=== PATIENT | female | born 1975 | race Caucasian/White ===

== ENCOUNTER 2023-04-09 17:33 | Observation (INO) | payer BC ==
[2023-04-09] MEDS ORDERED: NA CHLORIDE 0.9% 1,000 ML ONE (18:25)
--- NOTE | 2023-04-09 18:25 | RAD REPORT ---
EXAM DESCRIPTION: RAD - Chest Single View - 04/09/2023 6:13 pm CLINICAL HISTORY: CHEST PAIN COMPARISON: <Comparisons> FINDINGS: Lines: None. Lungs: No evidence of edema or pneumonia. Pleural: No significant pleural effusions or pneumothorax. Cardiac: The heart size is within normal limits. Mediastinum: Within normal limits. Bones: No acute fractures. Other: None IMPRESSION: No acute cardiopulmonary disease.
[2023-04-09] MEDS ORDERED: hydrOXYzine HCL 25 MG TAB ONE ×2 (18:30→19:47)
[2023-04-09 18:34] LABS: Absolute Lymphocytes (CBC) 1.5 K/uL (0.7-4.9); Lymphocytes % 19.9 % (15.3-44.8); MCV 92.9 fL (80-100); MPV 7.1 fL (7.6-11.3); Platelets 134 thou/uL (152-406); RBC Red Blood Cell Count 4.41 M/uL (3.86-4.86)
[2023-04-09 18:58] LABS: Troponin High Sensitivity 60.4 pg/mL (<58.9)
--- NOTE | 2023-04-09 19:31 | ER ---
Nurse's Notes [facility] Name: Ruby Henderson Age: 47 yrs Sex: Female : 1975 Arrival Date: 04/09/2023 Time: 17:33 Bed 20 Private MD: Diagnosis: Chest pain, unspecified;Anxiety disorder, unspecified;Alcohol abuse Presentation: 04/09 17:42 Chief complaint: Patient states: Chest pressure, abdominal pains, "alcohol poisoning" ll1 for a few days. Took herself off alprazolam 4 days ago. N/V every morning. Drinks 4 pack od small cecily daily. Coronavirus screen: Client denies travel out of the [place] in the last 14 days. At this time, the client does not indicate any symptoms associated with coronavirus-19. Ebola Screen: Patient denies travel to an Ebola-affected area in the 21 days before illness onset. 17:42 Method Of Arrival: Ambulatory ll1 17:44 Initial Sepsis Screen: Does the patient meet any 2 criteria? No. Patient's initial ll1 sepsis screen is negative. Does the patient have a suspected source of infection? No. Patient's initial sepsis screen is negative. Risk Assessment: Do you want to hurt yourself or someone else? Patient reports no desire to harm self or others. Onset of symptoms was April 07, 2023. 17:44 Acuity: CHANDU 3 ll1 Triage Assessment: 17:46 General: Appears uncomfortable, Behavior is cooperative, appropriate for age, anxious. ll1 Pain: Complains of pain in chest Pain currently is 3 out of 10 on a pain scale. Neuro: Reports. Cardiovascular: Reports chest pain. GI: Reports nausea, vomiting. Historical: - PMHx: 17:44 Hypertensive disorder; Anxiety; ll1 - Immunization history:: Adult Immunizations up to date. - Social history:: Smoking status: unknown Patient uses alcohol, on a daily basis. Screenin:01 [facility] ED Fall Risk Assessment (Adult) History of falling in the last 3 months, me1 including since admission Yes- single mechanical fall (1 pt) Confusion or Disorientation No (0 pts) Intoxicated or Sedated Yes (3 pts) Impaired Gait No (0 pts) Mobility Assist Device Used No (0 pt) Altered Elimination No (0 pt) Score/Fall Risk Level 0 - 2 = Low Risk Maintained a safe environment, Provided non-skid footwear, Hourly rounding (assess needs \\T\\ fall precautionary measures) done. Abuse screen: Denies threats or abuse. Nutritional screening: No deficits noted. Tuberculosis screening: No symptoms or risk factors identified. Assessment: 19:01 General: Appears uncomfortable, well groomed, well developed, well nourished, Behavior me1 is cooperative, appropriate for age, anxious, Reports Chest pressure, abdominal pains, "alcohol poisoning" for a few days. Took herself off alprazolam 4 days ago. N/V every morning. Drinks 4 pack of small cecily daily. Pain: Complains of pain in chest Pain does not radiate. Pain currently is 3 out of 10 on a pain scale. Quality of pain is described as pressure Pain began 2-3 days ago. Is continuous. Neuro: Level of Consciousness is awake, alert, obeys commands, Oriented to person, place, time, situation, Appropriate for age. Cardiovascular: Capillary refill < 3 seconds Patient's skin is warm and dry. Respiratory: Airway is patent Respiratory effort is even, unlabored, Respiratory pattern is regular, symmetrical. GI: Abdomen is non-distended, Reports lower abdominal pain, upper abdominal pain, cramping, nausea, vomiting, since a few days ago. n/v since earlier today. Vital Signs: 17:42 BP 141 / 104; Pulse 105; Resp 20; Temp 99; Pulse Ox 97% ; Pain 3/10; ll1 18:22 BP 124 / 82; Pulse 89; Resp 16; Pulse Ox 97% on R/A; me1 19:43 BP 148 / 103; Pulse 91; Resp 18; Pulse Ox 99% on R/A; me1 21:10 BP 116 / 75; Pulse 96; Resp 18; Pulse Ox 98% on R/A; me1 17:42 Pain Scale: Adult ll1 ED Course: 17:36 Patient arrived in ED. mr 17:36 Vivek Jean MD is Attending Physician. ec2 17:44 Arm band placed on. ll1 17:46 Triage completed. ll1 18:07 Sue Reynaga, JANE is Primary Nurse. me1 18:08 Patient placed in an exam room, on a stretcher. ll1 18:15 XRAY Chest (1 view) In Process Unspecified. EDMS 18:23 Alcohol Level Sent. me1 18:59 Notified ED physician of a critical lab result(s). troponin 60.4, notified Dr Jean. me1 19:01 Patient has correct armband on for positive identification. Placed in gown. Bed in low me1 position. Call light in reach. Side rails up X2. Provided Education on: POC. Verbalized understanding. . 19:01 No provider procedures requiring assistance completed. me1 19:30 Ezequiel Dominguez is Hospitalizing Provider. ec2 20:28 Shine Taveras MD is Hospitalizing Provider. kb 21:47 Lipid Profile Sent. me1 21:47 Lipid Profile Sent. me1 21:47 Troponin High Sensitivity Sent. me1 21:48 Lipase Sent. me1 04/10 00:03 Patient admitted, IV remains in place. vc1 Administered Medications: 04/09 18:28 Drug: NS 0.9% IV 1000 ml IV at 1 bolus Per protocol; 1000 mL bolus Route: IV; Rate: 1 me1 bolus; Site: right antecubital; 18:31 Drug: hydrOXYzine PO 50 mg PO once Route: PO; me1 19:05 Follow up: Response: No adverse reaction me1 19:50 Drug: Aspirin PO Chewable Tablet 324 mg PO once; 81 mg tablets x 4 Route: PO; me1 20:37 Follow up: Response: No adverse reaction me1 19:50 Drug: hydrOXYzine PO 50 mg PO once Route: PO; me1 20:37 Follow up: Response: No adverse reaction me1 Medication: 19:01 VIS not applicable for this client. me1 Outcome: 19:31 Decision to Hospitalize by Provider. ec2 04/10 00:03 Admitted to ER Hold. Please see [facility] for further documentation. vc1 Condition: good Instructed on the need for admit, 11:54 Patient left the ED. hb Signatures: Dispatcher [employer] EDMS Radha Coulter, GARRICK DATA INTEGRITY CONSULTANT-Laxmi Menezes, Reg Reg mr JadenKarla, RN RN Amara Venegas RN RN ll1 Jojo Wang RN RN 1 Sue Reynaga RN RN ca1 Vivek Jean MD MD ec2 Corrections: (The following items were deleted from the chart) 04/09 17:46 17:42 Chief complaint: Patient states: Chest pressure, abdominal pains, "alcohol ll1 poisoning" for a few days. Took herself off alprazolam 4 days ago. ll1 17:46 17:42 Pulse 105bpm; Resp 20bpm; Pulse Ox 97%; Temp 99F; ll1 ll1 19:01 17:42 Chief complaint: Patient states: Chest pressure, abdominal pains, "alcohol me1 poisoning" for a few days. Took herself off alprazolam 4 days ago. N/V every morning. Drinks 4 pack od small cecily daily. ll1
--- NOTE | 2023-04-09 19:31 | EDPHYS ---
Physician Documentation [facility] Name: Ruby Henderson Age: 47 yrs Sex: Female : 1975 Arrival Date: 04/09/2023 Time: 17:33 Bed 20 Private MD: ED Physician Vivek Jean HPI: 04/09 17:49 This 47 yrs old Female presents to ER via Ambulatory with complaints of ec2 Anxiety. 17:49 Patient arrives today for evaluation of alcohol intoxication as well as anxiety. ec2 Patient reports that she has a history of anxiety, has been on alprazolam for the past month, states that she had subsequently tried weaning off of this and feels that her anxiety is getting worse. Patient also reports history of significant alcohol abuse, states that she drinks approximately 1 bottle of wine per day. Patient reports that she is having chest discomfort as well as palpitations. Patient reports no vomiting or diarrhea. Of note patient is accompanied by family members. . Historical: - PMHx: 17:44 Hypertensive disorder; Anxiety; ll1 - Immunization history:: Adult Immunizations up to date. - Social history:: Smoking status: unknown Patient uses alcohol, on a daily basis. ROS: 17:49 Constitutional: as per hpi ec2 Exam: 17:49 Constitutional: GEN: NAD Head: atraumatic Eyes: EOMI Ears: External ears are ec2 normal. CV: tachycardia LUNGS: no respiratory distress, no wheezes, no rales, rhonchi ABD: non-distended SKIN: no evidence of rashes MSK: no evidence of trauma NEURO: moves all extremities equally Vital Signs: 17:42 BP 141 / 104; Pulse 105; Resp 20; Temp 99; Pulse Ox 97% ; Pain 3/10; ll1 18:22 BP 124 / 82; Pulse 89; Resp 16; Pulse Ox 97% on R/A; me1 19:43 BP 148 / 103; Pulse 91; Resp 18; Pulse Ox 99% on R/A; me1 21:10 BP 116 / 75; Pulse 96; Resp 18; Pulse Ox 98% on R/A; me1 17:42 Pain Scale: Adult ll1 MDM: 17:40 Patient medically screened. ec2 17:49 Data reviewed: vital signs. ED course: Patient arrives today due to concern for ec2 anxiety. Examination remarkable for well-appearing nontoxic dividual is otherwise in no acute distress with a reassuring cardiopulmonary examination. Will obtain lab work, EKG, chest x-ray for further assessment the patient complaint. Currently considered processes such as anxiety, electrolyte disturbances, ACS. Low suspicion for PE, low suspicion for dissection.. 18:34 ED course: Chest x-ray independently reviewed and interpreted by me, shows no acute ec2 intrathoracic process. . 19:01 ED course: CBC is reassuring. Troponin elevated at 60.4. Metabolic profile with ec2 appropriate electrolytes and renal function, BNP within normal ranges, chest x-ray with no acute intrathoracic process. Ultimately I have no baseline for the patient, will admit for further cardiac evaluation.. 19:21 ED course: EKG independently reviewed and interpreted by me, shows normal sinus rhythm, ec2 rate of 80, no acute ST segment elevations, intervals are otherwise nonconcerning.. 19:30 ED course: I discussed case with hospitalist, pending admission. . ec2 20:28 Consideration of Admission/Observation Patient was admitted/placed on observation. kb Escalation of care including admission/observation considered. Management of patient was discussed with the following: Hospitalist: Dr Taveras accepts pt for admission. Counseling: I had a detailed discussion with the patient and/or guardian regarding the historical points, exam findings, and any diagnostic results supporting the discharge/admit diagnosis, lab results, radiology results, the need for further work-up and treatment in the hospital. 04/09 17:49 Order name: Basic Metabolic Panel; Complete Time: 19:01 ec2 04/09 17:49 Order name: CBC with Diff; Complete Time: 19:01 ec2 04/09 17:49 Order name: NT PRO-BNP; Complete Time: 19:01 ec2 04/09 17:49 Order name: Troponin HS; Complete Time: 19:01 ec2 04/09 17:49 Order name: Alcohol Level; Complete Time: 19:03 ec2 04/09 21:17 Order name: Lipid Profile [facility] 04/09 21:17 Order name: Lipid Profile; Complete Time: 14:17 EDFL 04/09 21:17 Order name: Troponin High Sensitivity [facility] 04/09 21:17 Order name: Troponin High Sensitivity [facility] 04/09 21:17 Order name: Troponin High Sensitivity; Complete Time: 14:17 [facility] 04/09 21:17 Order name: Troponin High Sensitivity EDMS 04/09 21:17 Order name: Troponin High Sensitivity; Complete Time: 14:17 EDMS 04/09 21:18 Order name: Lipase EDMS 04/09 22:37 Order name: Lipase; Complete Time: 14:17 EDMS 04/09 17:49 Order name: XRAY Chest (1 view); Complete Time: 18:34 ec2 04/09 17:49 Order name: EKG; Complete Time: 17:49 ec2 04/09 21:17 Order name: CONS Physician Consult EDMS 04/09 17:49 Order name: Cardiac monitoring; Complete Time: 19:18 ec2 04/09 17:49 Order name: EKG - Nurse/Tech; Complete Time: 19:18 ec2 04/09 17:49 Order name: IV Saline Lock; Complete Time: 18:21 ec2 04/09 17:49 Order name: Labs collected and sent; Complete Time: 18:21 ec2 04/09 17:49 Order name: O2 Per Protocol; Complete Time: 18:21 ec2 04/09 17:49 Order name: O2 Sat Monitoring; Complete Time: 18:22 ec2 Administered Medications: 18:28 Drug: NS 0.9% IV 1000 ml IV at 1 bolus Per protocol; 1000 mL bolus Route: IV; Rate: 1 me1 bolus; Site: right antecubital; 18:31 Drug: hydrOXYzine PO 50 mg PO once Route: PO; me1 19:05 Follow up: Response: No adverse reaction me1 19:50 Drug: Aspirin PO Chewable Tablet 324 mg PO once; 81 mg tablets x 4 Route: PO; me1 20:37 Follow up: Response: No adverse reaction me1 19:50 Drug: hydrOXYzine PO 50 mg PO once Route: PO; me1 20:37 Follow up: Response: No adverse reaction me1 Disposition: 04/10 14:17 Co-signature as Attending Physician, Vivek Jean MD. ec2 Disposition Summary: 04/09/23 19:31 Hospitalization Ordered Notes: Hospitalization Status: Inpatient Admission ec2 Condition: Stable ec2 Problem: new ec2 Symptoms: have improved ec2 Bed/Room Type: Standard ec2 Provider: Shine Taveras(04/09/23 20:28) jael Location: [facility] ER HOLD(04/09/23 20:59) rv1 Room Assignment: ERHOLD-(04/09/23 20:59) rv1 Diagnosis - Chest pain, unspecified ec2 - Anxiety disorder, unspecified ec2 - Alcohol abuse ec2 Forms: - Medication Reconciliation Form ec2 - SBAR form ec2 - Leadership Thank You Letter ec2 Signatures: Dispatcher [employer] EDRadha Jackson, GARRICK ABDALLA-Amara Farah RN RN 1 Emmy Peck rv1 Sue Reynaga RN RN ca1 Vivek Jean MD MD ec2 Corrections: (The following items were deleted from the chart) 04/09 18:02 17:49 Patient arrives today for evaluation of alcohol intoxication as well as anxiety. ec2 Patient reports that she has a history of anxiety, has been on alprazolam for the past month, states that she had subsequently tried weaning off of this and feels that her anxiety is getting worse. Patient also reports history of significant alcohol abuse, states that she drinks approximately 1 bottle of wine per day. Patient reports that she is having chest discomfort as well as palpitations. Patient reports no vomiting or diarrhea.. ec2 20:28 19:31 Ezequiel Dominguez ec2 kb 20:59 19:31 Telemetry/MedSurg (Inpatient) ec2 rv1 20:59 19:31 ec2 rv1
[2023-04-09] MEDS ORDERED: ASPIRIN 81 MG CHEWABLE TABLET ONE (19:47)
[2023-04-09] MEDS ORDERED: NITROGLYCERIN 0.4 MG/TAB SL PRN (21:09)
[2023-04-09] MEDS ORDERED: MORPHINE 4 MG/ML SYR IV PRN (21:09)
--- NOTE | 2023-04-09 21:22 | P.HP ---
Certification for Inpatient Patient admitted to: Observation Practitioner: I am a practitioner with admitting privileges, knowledge of patient current condition, hospital course, and medical plan of care. Services: Services provided to patient in accordance with Admission requirements found in Title 42 Section 412.3 of the Code of Federal Regulations Patient History Date of Service: 04/09/23 Reason for admission: Chest pain History of Present Illness: 47-year-old female with no known medical problems presented to the emergency department with complaints of chest pain Patient stated that his symptoms started approximately 1 week back. Intermittent. Pain is mainly localized in the retrosternal area. Describes it as a burning sensation worse with swallowing. Denies palpitations, dizziness. No radiation. Denies cough, shortness of breath. Cannot admitted to drinking alcohol daily-1 bottle of wine per day She was initially evaluated in the ED. Hemodynamically stable at presentation EKG showed no ST or T wave changes Troponin is slightly elevated Patient is chest pain-free at this point in time Review of Systems General: Unremarkable Eyes: Unremarkable ENT: Unremarkable Respiratory: Unremarkable Cardiovascular: Chest Pain Gastrointestinal: Unremarkable Genitourinary: Unremarkable Musculoskeletal: Unremarkable Integumentary: Unremarkable Neurological: Unremarkable Physical Examination - Physical Exam General: Alert, Oriented x3 HEENT: Atraumatic, Normocephalic Neck: Supple, JVD not distended Respiratory: Clear to auscultation bilaterally, Normal air movement Cardiovascular: No edema, Regular rate/rhythm, Normal S1 S2 Gastrointestinal: Normal bowel sounds, Soft and benign, Non-distended Musculoskeletal: No swelling, No erythema Integumentary: No rashes, No erythema Neurological: Normal gait, Normal speech - Studies Laboratory Data (last 24 hrs) 04/09/23 04/09/23 18:20 18:20 WBC 7.50 Hgb 13.7 Hct 41.0 Plt Count 134 L Sodium 137 Potassium 4.0 BUN 13 Creatinine 0.78 Glucose 94 Assessment and Plan - Advance Directives Does patient have a Living Will: No Does patient have a Durable POA for Healthcare: No Assessment & Plan - Plan ASSESSMENT Chest pain-atypical, likely esophagitis Slightly elevated troponin Chronic alcohol abuse PLAN Patient presented with chest pain mainly localized in the retrosternal area-1 week in duration, worse with swallowing. Admitted to drinking alcohol-1 bottle of wine per day Chest pain is atypical, most likely esophagitis/gastritis Patient will be placed in observation Monitor on telemetry Will start the patient on Protonix 40 mg p.o. twice daily, sucralfate 1 g p.o. 4 times daily Consult the patient about abstaining from drinking alcohol EKG did not show any ST or T wave changes Troponin is slightly elevated Will start Lovenox 1 mg/kg subcutaneous every 12 hours for now. Repeat troponin q 8 hours x 2 Sublingual nitroglycerin, IV morphine as needed for chest pain Obtain cardiology consult Check lipase level Further management will be based on patient hospital course. Likely discharge on 04/10/2023 clinically stable. Discussed treatment plan with the patient and answered all her questions. - Advance Directives Does patient have a Living Will: No Does patient have a Durable POA for Healthcare: No
[2023-04-09 22:31] LABS: Troponin High Sensitivity 59.8 pg/mL (<58.9)
[2023-04-09 22:41] VITALS: BMI 22.4
[2023-04-10] MEDS ORDERED: ONDANSETRON 4 MG/2 ML VIAL ONE (06:01)
[2023-04-10] MEDS ORDERED: ONDANSETRON 4 MG/2 ML VIAL IV PRN (06:05)
[2023-04-10] MEDS: PANTOPRAZOLE 40MG TABLET PO SCH ×2 (07:30→16:30)
[2023-04-10] MEDS ORDERED: PANTOPRAZOLE 40MG TABLET PO ONE (07:59)
[2023-04-10] MEDS ORDERED: ASPIRIN EC 81 MG TAB PO ONE (07:59)
[2023-04-10] MEDS ORDERED: ENOXAPARIN 60 MG/0.6 ML SQ ONE (08:00)
[2023-04-10] MEDS: SUCRALFATE 1GM/10ML UCUP FT SCH ×3 (08:20→16:31)
[2023-04-10] MEDS ORDERED: LORAZEPAM 1 MG TABLET PO ONE (08:43)
[2023-04-10] MEDS ORDERED: LORAZEPAM 1 MG TABLET ONE (08:48)
[2023-04-10] MEDS ORDERED: ENOXAPARIN 60 MG/0.6 ML SQ SCH (09:00)
[2023-04-10] MEDS ORDERED: ASPIRIN EC 81 MG TAB PO SCH (09:00)
[2023-04-10] MEDS ORDERED: FLUMAZENIL 0.1 MG/ML (5 mL VIAL) IV PRN (09:18)
[2023-04-10] MEDS ORDERED: LORazepam 2 MG/ML VIAL IV PRN (09:18)
[2023-04-10] MEDS: LORazepam 2 MG/ML VIAL IV SCH ×3 (10:00→16:35)
[2023-04-10] MEDS ORDERED: LIDOCAINE 1% 20 ML MDV ONE (11:42)
[2023-04-10] MEDS ORDERED: HEPA 1000U/500MLS 2,000 UNIT/1,000 ML BAG IV ONE (11:42)
[2023-04-10] MEDS ORDERED: VERAPAMIL HCL 10 MG/4 ML VIAL IV ONE (11:42)
[2023-04-10] MEDS ORDERED: HEPARIN 5000 UNIT/ML 1 ML VIAL ONE (11:43)
[2023-04-10] MEDS ORDERED: HEPARIN 10,000 UNIT/10 ML VIAL IV ONE (11:43)
[2023-04-10] MEDS ORDERED: NA CHLORIDE 0.9% 0 ML ONE (11:43)
[2023-04-10] MEDS ORDERED: NA CHLORIDE 0.9% 500 ML ONE (12:27)
[2023-04-10] MEDS ORDERED: MIDAZOLAM HCL 2 MG/2 ML INJ ONE (13:00)
[2023-04-10] MEDS ORDERED: FENTANYL CITR 100 MCG/2 ML ONE (13:00)
[2023-04-10] MEDS ORDERED: CLOPIDOGREL 75 MG TABLET ONE (13:01)
[2023-04-10] MEDS ORDERED: ATROPINE SULF 1 MG/10 ML SYR IV ONE (13:01)
[2023-04-10] MEDS ORDERED: TICAGRELOR 90 MG TABLET PO ONE (13:01)
[2023-04-10] MEDS ORDERED: ASPIRIN 325 MG TAB ONE (13:02)
[2023-04-10 15:42] VITALS: O2SAT 97
[2023-04-10 17:28] VITALS: BP 130/85; TEMP 98.4
--- NOTE | 2023-04-10 17:32 | OP ---
Date of Procedure: 04/10/2023 Surgeon: PAWEL VALLE Procedures Performed: 1.Selective coronary angiogram. 2.Left heart catheterization. Indication: Nip-LE-cingmxrqh myocardial infarction. Access: Right radial artery 6-Slovenian closed with TR band. Complications: None. Bleeding: Less than 20 mL. Description Of Procedure: After risks, benefits, alternatives were explained, the patient agreed to procedure and signed informed consent. Patient was brought into the cardiac catheterization laborato ry, prepped and draped in the usual sterile fashion. Then I accessed right radial artery using pedia tric micropuncture kit, placed a 6-Slovenian Slender sheath and took 5-Slovenian [place] 4.0 catheter over a J-wire, engaged the left main and then the right coronary artery, took standard views and a catheter was placed over the wire into the LV, measured the LVEDP. Pullback did not record any gradient. The n I removed the catheter and the sheath and placed TR band with good hemostasis. Findings: 1.Left main is normal. 2.LAD; large and normal. Normal diagonal branches. 3.Left circumflex; moderate size and normal. 4.RCA; moderate size and dominant, normal. 5.Normal LVEDP. Conclusion: 1.Normal coronary arteries. 2.Normal LVEDP. Recommendation: Medical management. SR/MODL Voice ID: [id number] Report ID: [id number]
--- NOTE | 2023-04-10 18:49 | P.DS ---
Admission Date: 04/09/23 Discharge Date: 04/10/23 Disposition: ROUTINE DISCHARGE Discharge Condition: FAIR Reason for Admission: Chest pain - Problems (1) Chest pain Current Visit: Yes Status: Acute (2) Alcohol intoxication Current Visit: Yes Status: Acute (3) Hyperlipidemia Current Visit: Yes Status: Acute Brief History of Present Illness: 47-year-old female with history of alcoholism presented to the emergency department with complaints of chest pain Patient stated that his symptoms started approximately 1 week back. Intermittent. Pain is mainly localized in the retrosternal area. She described s a burning sensation worse with swallowing. Denies palpitations, dizziness. No radiation. Denies cough, shortness of breath. Cannot admitted to drinking alcohol daily-1 bottle of wine per day She was initially evaluated in the ED. EKG showed no ischemic changes. Troponin is slightly elevated Patient hospitalized for ACS rule out. Hospital Course: Patient placed on observation on the medical floor. Symptoms suspected to be related to alcohol induced gastritis. Patient alcohol level on presentation was in the 400s. Her troponin was mildly elevated but trended flat. She was seen and evaluated by cardiology who performed cardiac catheterization. Cardiac cath reported no significant coronary artery disease given elevated troponin. Patient was placed on Protonix twice a day and sucralfate. She tolerated diet. She received a single dose of Ativan but was overall stable during the hospital stay. Patient is discharged with Protonix and Maalox for gastritis. Vital Signs/Physical Exam: Temp Pulse Resp BP Pulse Ox 98.4 F 74 14 130/85 98 04/10/23 16:00 04/10/23 16:00 04/10/23 16:00 04/10/23 16:00 04/10/23 16:00 General: In no apparent distress HEENT: Mucous membr. moist/pink Neck: JVD not distended Respiratory: Clear to auscultation bilaterally, Normal air movement Cardiovascular: No edema, Regular rate/rhythm, Normal S1 S2 Gastrointestinal: Normal bowel sounds, Soft and benign, Non-distended Musculoskeletal: No swelling Laboratory Data at Discharge: WBC 7.50 thou/uL (4.3-10.9) 04/09/23 18:20 Hgb 13.7 g/dL (12.0-15.0) 04/09/23 18:20 Hct 41.0 % (36.0-45.0) 04/09/23 18:20 Plt Count 134 thou/uL (152-406) L 04/09/23 18:20 Sodium 137 mEq/L (136-145) 04/09/23 18:20 Potassium 4.0 mEq/L (3.5-5.1) 04/09/23 18:20 BUN 13 mg/dL (7-18) 04/09/23 18:20 Creatinine 0.78 mg/dL (0.55-1.02) 04/09/23 18:20 Glucose 94 mg/dL (74-106) 04/09/23 18:20 Triglycerides 62 mg/dL (<150) 04/09/23 21:46 Cholesterol 236 mg/dL (<200) H 04/09/23 21:46 HDL Cholesterol 139 mg/dL (40-60) H 04/09/23 21:46 Cholesterol/HDL Ratio 1.70 04/09/23 21:46 Lipase 114 U/L (13-75) H 04/09/23 21:46 Home Medications: Folic Acid 1 mg PO DAILY #30 tab 04/10/23 Lisinopril [Zestril] 1 tab PO DAILY 04/10/23 Mag Hydrox/Al Hydrox/Simeth [Maalox Suspension] 15 ml PO TID #355 ml 04/10/23 Multivit,Ther Iron,Ca,FA & Min [Centrum Tablet*] 1 tab PO DAILY #30 tab 04/10/23 Pantoprazole [Protonix Tab*] 40 mg PO BIDAC #60 tab 04/10/23 Thiamine HCl [Vitamin B-1*] 100 mg PO DAILY #30 tab 04/10/23 New Medications: Multivit,Ther Iron,Ca,FA & Min [Centrum Tablet*] 1 tab PO DAILY #30 tab Folic Acid 1 mg PO DAILY #30 tab Mag Hydrox/Al Hydrox/Simeth [Maalox Suspension] 15 ml PO TID #355 ml Pantoprazole [Protonix Tab*] 40 mg PO BIDAC #60 tab Thiamine HCl [Vitamin B-1*] 100 mg PO DAILY #30 tab Diet: AHA Activity: Fall precautions Followup: NONE,NONE [Primary Care Provider] - 1-2 Weeks Time spent managing pt's care (in minutes): 26
--- NOTE | 2023-04-10 23:25 | P.CNS ---
Date of Consult: 04/09/23 Reason for Consult: Chest pain, elevated troponin (60.4) Requesting Physician: Shine Taveras Chief Complaint: Chest pain History of Present Illness: Ms. Henderson is a 47 yo with no past medical history. She drinks a bottle of wine daily. She presented to the Emergency room with substernal chest pain. Her troponin was elevated, EKG without ST abnormality and cardiology was consulted. Allergies No Known Drug Allergies Allergy (Unknown, Verified 04/09/23 22:35) Rash Home medications list reviewed: Yes Home Medications: Folic Acid 1 mg PO DAILY #30 tab 04/10/23 Lisinopril [Zestril] 1 tab PO DAILY 04/10/23 Mag Hydrox/Al Hydrox/Simeth [Maalox Suspension] 15 ml PO TID #355 ml 04/10/23 Multivit,Ther Iron,Ca,FA & Min [Centrum Tablet*] 1 tab PO DAILY #30 tab 04/10/23 Pantoprazole [Protonix Tab*] 40 mg PO BIDAC #60 tab 04/10/23 Thiamine HCl [Vitamin B-1*] 100 mg PO DAILY #30 tab 04/10/23 - Past Medical/Surgical History Diabetic: No -: C/S, tubal Psychosocial/ Personal History: Lives at home. Drinks daily - Social History Smoking Status: Unknown if ever smoked Alcohol use: Yes CD- Drugs: No Caffeine use: Yes Place of Residence: Home Review of Systems 10-point ROS is otherwise unremarkable Cardiovascular: Chest Pain, As per HPI Physical Examination Temp Pulse Resp BP Pulse Ox 98.4 F 74 14 130/85 98 04/10/23 16:00 04/10/23 16:00 04/10/23 16:00 04/10/23 16:00 04/10/23 16:00 General: Alert, In no apparent distress, Oriented x3 HEENT: Atraumatic, Normocephalic, PERRLA Neck: Supple, 2+ carotid pulse no bruit, JVD not distended Respiratory: Clear to auscultation bilaterally, Normal air movement Cardiovascular: No edema, Normal pulses, Regular rate/rhythm Capillary refill: <2 Seconds Gastrointestinal: Normal bowel sounds, Soft and benign Musculoskeletal: No clubbing Neurological: Normal speech, Normal tone Lymphatics: No axilla or inguinal lymphadenopathy External genitalia: Deferred Rectal: Deferred - Problems (1) Chest pain Status: Acute Plan: Cardiac cath performed 04/10/23, Normal coronary vessels. (2) Hyperlipidemia Status: Acute Plan: Continue statin Follow up cardiology in 2-3 months or prn
--- NOTE | 2023-04-11 07:09 | ECHO ---
HEIGHT: 5 ft 7 in WEIGHT: 143 lb 0 oz DATE OF STUDY: 04/10/[address]: Ezequiel Dominguez MD 2-DIMENSIONAL: YES M.MODE: YES DOPPLER: YES COLOR FLOW: YES TDS: PORTABLE: YES DEFINITY: BUBBLE STUDY: DIAGNOSIS: ELEVATED TROPONIN, ASSESS FOR ALCHOLIC CARDIOMYOPATHY CARDIAC HISTORY: CATHERIZATION: NO SURGERY: NO PROSTHETIC VALVE: NO PACEMAKER: NO MEASUREMENTS (cm) DIASTOLIC (NORMALS) SYSTOLIC (NORMALS) IVSd 1.1 (0.6-1.2) LA Diam 2.3 (1.9-4.0) LVEF 53% LVIDd 3.8 (3.5-5.7) LVIDs 2.7 (2.0-3.5) %FS 27% LVPWd 1.1 (0.6-1.2) Ao Diam 2.3 (2.0-3.7) 2 DIMENSIONAL ASSESSMENT: RIGHT ATRIUM: NORMAL LEFT ATRIUM: NORMAL RIGHT VENTRICLE: NORMAL LEFT VENTRICLE: NORMAL TRICUSPID VALVE: NORMAL MITRAL VALVE: MILD MITRAL REGURGITATION PULMONIC VALVE: NORMAL AORTIC VALVE: NORMAL PERICARDIAL EFFUSION: NONE AORTIC ROOT: NORMAL LEFT VENTRICULAR WALL MOTION: NORMAL DOPPLER/COLOR FLOW: MILD MITRAL REGURGITATION COMMENTS: 1. NORMAL LEFT VENTRICULAR EJECTION FRACTION 55-60% WITH NORMAL WALL MOTION 2. NORMAL DIASTOLIC FUNCTION 3. MILD MITRAL REGURGITATION TECHNOLOGIST: DEE DEE COLE
[2023-04-11] MEDS ORDERED: FOLIC ACID 1 MG TABLET PO SCH (09:00)
[2023-04-11] MEDS ORDERED: THIAMINE HCL 100 MG TABLET PO SCH (09:00)
[2023-04-11] MEDS ORDERED: MULTIVITAMIN TAB PO SCH (09:00)
--- NOTE | 2023-04-11 13:26 | EKG ---
Test Date: 2023-04-09 Test Time: 19:10:29 Washcloth Folder: CHRIS MEASUREMENT RESULTS: Intervals: Rate: 80 VA: 140 QRSD: 82 QT: 404 QTc: 465 Orgas: P: 58 VA: 140 QRS: 64 T: 58 INTERPRETIVE STATEMENTS: Normal sinus rhythm Normal ECG No previous ECG available for comparison Electronically Signed On 04-11-23 13:22:02 WASH BOX OPERATOR by Saravanan Ceballos
[2023-04-12] MEDS ORDERED: LORazepam 2 MG/ML VIAL IV SCH (10:00)
== END 2023-04-10 19:39 | disposition home or self-care (01) ==
LOC: ER 17:33 → ERHOLD 21:09 → 4TH 04-10 16:12
PROVIDERS: ADMIT Family Medicine; ATTEND Internal Medicine
PROC: 4A023N7 Measurement of Cardiac Sampling and Pressure, Left Heart, Percutaneous Approach (ICD-10-PCS; principal; 2023-04-10)
PROC: B2111ZZ Fluoroscopy of Multiple Coronary Arteries using Low Osmolar Contrast (ICD-10-PCS; 2023-04-10)
DX: R07.9 Chest pain, unspecified (principal); F10.229 Alcohol dependence with intoxication, unspecified; K29.70 Gastritis, unspecified, without bleeding; E78.5 Hyperlipidemia, unspecified; R79.89 Other specified abnormal findings of blood chemistry; I10 Essential (primary) hypertension; F41.9 Anxiety disorder, unspecified; Z79.899 Other long term (current) drug therapy
CPT/HCPCS: 93005; 93306; 85025; 80048; 36415; 80061; 84484 ×3; 83690; 83880; 71045; 93458; 76937; 99285; 82077; C1893; Q9966; J1644; J1650; J2001; J2405; G0378 ×5; J7040; J7030; 99152; 99153; J0461; J2250; J3010